=== PATIENT | male | born 1950 | race Caucasian/White ===

== ENCOUNTER 2017-07-18 07:44 | Emergency (ER) | payer MEDICARE ==
[~2017-07-18] VITALS: Ht 167.6 cm; Wt 81.6 kg
[~2017-07-18 07:44] MED LIST: ACEBUTOLOL HCL200 MG PO; BENAZEPRIL HCL40 MG PO; CYMBALTA30 MG PO; HYDROCHLOROTHIA25 MG PO; LOTREL 10-20 M1 EACH PO; LYRICA50 MG PO; NORCO 10-325 T1 EACH PO; PRILOSEC20 MG PO
== END 2017-07-18 08:40 | disposition home or self-care (01) ==
LOC: FSED 07:44
DX: I10 Essential (primary) hypertension (principal); E78.5 Hyperlipidemia, unspecified; K21.9 Gastro-esophageal reflux disease without esophagitis; J44.9 Chronic obstructive pulmonary disease, unspecified; F32.9 Major depressive disorder, single episode, unspecified; M54.5 Low back pain; G89.29 Other chronic pain
CPT/HCPCS: 99282

== ENCOUNTER → 2017-09-01 | Outpatient (CLI) | payer MEDICARE ==
--- NOTE | 2017-09-02 11:36 | Diagnostic Imaging Report ---
Exam: Lumbar spine MRI without IV contrast History: Low back pain, spondylolisthesis. Pain in right hip. Comparison studies: Lumbar spine MRI 12/20/2016. Technique: Sagittal and axial T2 , sagittal T1 and IR, axial spin density oblique. Coronal T2. Intravenous contrast: None Findings: Number of lumbar vertebral bodies: 5. Alignment: Moderate thoracolumbar curvature convex to the left centered at L1-L2. Normal lumbar lordosis. Soft tissues: No T2 hyperintense inflammatory changes. Paraspinal muscles: No signal abnormalities. Well-preserved. No atrophic changes Lower thoracic cord: Normal in signal and morphology. The tip of the conus is at T12-L1. Cauda equina: No masses. No arachnoiditis. Vertebrae: No compression fractures, infection or neoplasm. Degenerative changes: L1-L2: Mildly degenerated disc on the right due to curvature with new moderate degenerative endplate edema on the right. Asymmetric right disc bulge bulges and minimal right foraminal stenosis. No canal or left foraminal stenosis. L2-L3: Mildly degenerated disc primarily on the right due to curvature. Asymmetric right disc bulge results in moderate right foraminal stenosis and minimal canal stenosis. Extra foraminal disc bulge abuts the right L2 nerve root, unchanged. L3-L4: Mildly degenerated disc. Disc bulge with right foraminal annular fissure result in very mild canal stenosis and unchanged mild right foraminal stenosis. Disc bulge continues to abut the right L3 nerve root. L4-L5: Moderately degenerated disc on the left due to curvature. There are moderate degenerative endplate changes on the left due to curvature with decrease in degree of endplate edema. Disc bulge with right extraforaminal annular fissure, left foraminal disc osteophyte complex and moderate left facet arthrosis result in severe left foraminal stenosis and mild right foraminal stenosis. No significant canal stenosis. L5-S1: Moderate left facet arthrosis. Patent canal and foramina. IMPRESSION: 1. New reactive degenerative endplate edema on the right at L1-L2. Decreased endplate edema on the left at L4-5. 2. Unchanged multilevel disc degeneration, worse on the right at L1-L2 and L2-L3 and on the left at L4-L5 due to moderate levo curvature centered at L1-2. 3. Unchanged multilevel degenerative foraminal stenosis, worse/severe on the left at L4-L5 and moderate on the right L2-L3. 4. No significant canal stenosis. Signed by: Dr. Alexander Garcia M.D. on 09/02/2017 11:32 AM
== END ==
LOC: MRI 08:30
PROVIDERS: ATTEND Anesthesiology
DX: M54.5 Low back pain (principal); M51.36 Other intervertebral disc degeneration, lumbar region; M47.897 Other spondylosis, lumbosacral region; M54.16 Radiculopathy, lumbar region
CPT/HCPCS: 72148

== ENCOUNTER 2017-10-09 05:49 | Emergency (ER) | payer MEDICARE ==
[~2017-10-09] VITALS: Ht 167.6 cm; Wt 81.6 kg
--- OUTSIDE RECORDS SUMMARY | 2017-10-09 05:52 | XMS REPORT ---
Author Author [facility] Address Unknown Phone Unavailable Care Team Providers Care Manager Quantitative Name Role Phone MOSES SILVA Unavailable Unavailable Problems This patient has no known problems. Allergies, Adverse Reactions, Alerts This patient has no known allergies or adverse reactions. Medications This patient has no known medications. Results Test Description Test Time Test Comments Text Results Atomic Results Result Comments MRI SPINE LUMBAR WO [place] [id number] Patient Name: KALEE ONEAL MR #: [id number] : 1950 Age/Sex: 67/M Req #: [id number] Adm Physician: Ordered by: MOSES SILVA MD Report #: [id number] Location: MRI Room/Bed: Procedure: [id number] MRI/MRI SPINE LUMBAR WO Exam Date: Exam Time: REPORT STATUS: Signed Exam: Lumbar spine MRI without IV contrast History: Low back pain, spondylolisthesis. Pain in right hip. Comparison studies: Lumbar spine MRI 12/20/2016. Technique: Sagittal and axial T2 , sagittal T1 and IR, axial spin density oblique. Coronal T2. Intravenous contrast: None Findings: Number of lumbar vertebral bodies : 5. Alignment: Moderate thoracolumbar curvature convex to the left centered at L1-L2. Normal lumbar lordosis. Soft tissues: No T2 hyperintense inflammatory changes. Paraspinal muscles: No signal abnormalities. Well-preserved. No atrophic changes Lower thoracic cord : Normal in signal and morphology. The tip of the conus is at T12-L1. Cauda equina: No masses. No arachnoiditis. Vertebrae: No compression fractures, infection or neoplasm. Degenerative changes: L1-L2: Mildly degenerated disc on the right due to curvature with new moderate degenerative endplate edema on the right. Asymmetric right disc bulge bulges and minimal right foraminal stenosis. No canal or left foraminal stenosis. L2-L3: Mildly degenerated disc primarily on the right due to curvature. Asymmetric right disc bulge results in moderate right foraminal stenosis and minimal canal stenosis. Extra foraminal disc bulge abuts the right L2 nerve root, unchanged. L3-L4: Mildly degenerated disc. Disc bulge with right foraminal annular fissure result in very mild canal stenosis and unchanged mild right foraminal stenosis. Disc bulge continues to abut the right L3 nerve root. L4-L5: Moderately degenerated disc on the left due to curvature. There are moderate degenerative endplate changes on the left due to curvature with decrease in degree of endplate edema. Disc bulge with right extraforaminal annular fissure, left foraminal disc osteophyte complex and moderate left facet arthrosis result in severe left foraminal stenosis and mild right foraminal stenosis. No significant canal stenosis. L5-S1: Moderate left facet arthrosis. Patent canal and foramina. IMPRESSION: 1. New reactive degenerative endplate edema on the right at L1-L2. Decreased endplate edema on the left at L4-5. 2. Unchanged multilevel disc degeneration, worse on the right at L1-L2 and L2-L3 and on the left at L4 -L5 due to moderate levo curvature centered at L1-2. 3. Unchanged multilevel degenerative foraminal stenosis, worse/severe on the left at L4-L5 and moderate on the right L2-L3. 4. No significant canal stenosis. Signed by: Dr. mAandeep Keenan M.D. on 09/02/2017 11:32 AM Dictated By: AMANDEEP KEENAN MD 113 Transcribed By: JORGE A on 09/02/17 113 COPY TO: MOSES SILVA MD
[2017-10-09] MEDS ORDERED: LOMOTIL TABLET1 EACH PO (06:12)
[2017-10-09] MEDS ORDERED: DICYCLOMINE HCL20 MG PO (06:12)
[2017-10-09] MEDS ORDERED: DICYCLOMINE HCL 20 MG TAB PO ONE (06:15)
== END 2017-10-09 06:20 | disposition home or self-care (01) ==
LOC: FSED 05:49
DX: R19.7 Diarrhea, unspecified (principal); R10.30 Lower abdominal pain, unspecified; I10 Essential (primary) hypertension
CPT/HCPCS: 99282

== ENCOUNTER 2018-09-01 12:05 | Emergency (ER) | payer MEDICARE ==
[~2018-09-01] VITALS: Ht 167.6 cm; Wt 84.4 kg
[~2018-09-01 12:05] MED LIST changes: +DICYCLOMINE HCL20 MG PO; +LOMOTIL TABLET1 EACH PO
[2018-09-01] MEDS ORDERED: SODIUM CHLORIDE 0.9% 500ML 500 ML IV ONE (12:30)
--- NOTE | 2018-09-01 13:06 | Diagnostic Imaging Report ---
Examination: CT head without contrast Clinical Indication: Dizziness. Unsteady gait. Technique: Transaxial noncontrast images from the skull base through the vertex were obtained. Sagittal and coronal reformatted images were done. Dose modulation, iterative reconstruction, and/or weight based adjustment of the mA/kV was utilized to reduce the radiation dose to as low as reasonably achievable. Comparison: None. Findings: Scalp: No abnormalities. Bones: Intact. No fractures. No blastic or lytic lesions. Brain sulci: Appropriate for patient's age. Ventricles: Normal in size and configuration. No hydrocephalus. . Extra-axial space: No abnormalities. Parenchyma: There are subtle confluent areas of low-attenuation within subcortical and periventricular white matter, nonspecific, but could represent microvascular ischemic disease. No masses, hemorrhage, or acute or chronic cortical based vascular insults. Suprasellar region: No abnormalities. Craniocervical junction: The foramen magnum is patent. No Chiari one malformation. Impression: 1. No acute intracranial finding. 2. Mild chronic microvascular ischemic change. Signed by: Dr. Stephanie White M.D. on 09/01/2018 1:02 PM
[2018-09-01 14:41] VITALS: BP 173/106
== END 2018-09-01 14:42 | disposition home or self-care (01) ==
LOC: FSED 12:05
DX: R42 Dizziness and giddiness (principal)
CPT/HCPCS: 70450; 80053; 82553; 84484; 85025; 99283; J7040

== ENCOUNTER 2020-01-12 09:40 | Observation (INO) | payer MEDICARE, OTHER ==
[~2020-01-12] VITALS: Ht 167.6 cm; Wt 73.5 kg
[2020-01-12] MEDS ORDERED: ASPIRIN 325 MG TAB PO ONE (10:30)
[2020-01-12] MEDS ORDERED: ASPIRIN 81 MG CHEW TAB PO ONE (10:30)
--- NOTE | 2020-01-12 10:31 | Emergency Department Note ---
History of Present Illnes History of Present Illness Chief Complaint: Chest Pain History of Present Illness This is a 69 year old male Chief Complaint Comment PT STATES DIZZINESS AND HEARTBURN FOR ONE WEEK, PT STATES HE HAS BEEN HAVING A SLOW HR FOR ABOUT 4 YRS BUT HAS NOT SEEN A DOCTOR FOR IT, STEADY GAIT NOTED TO ROOM 1. DENIES SOB STATES HE ALWAYS HAS SOB. PT TALKING IN FULL SENTENCES . Historian: Patient Arrival Mode: Car Onset (how long ago): day(s) (1) Location: CHEST Quality: DULL Radiation: Denies non-radiation, Denies back, Denies neck, Denies extremity, Denies abdomen, Denies periumbilical, Denies flank, Denies proximal, Denies distal, Denies other Severity: moderate Onset quality: gradual Duration (how long): day(s) (1) Timing of current episode: intermittent Progression: waxing and waning Chronicity: new Context: Denies recent illness, Denies recent surgery, Denies recent immobilization, Denies recent travel, Denies trauma/injury, Denies new medications, Denies hx of DVT/PE, Denies non-compliance w/ medications, Denies other Relieving factors: none Exacerbating factors: none Associated symptoms: Reports chest pain; Denies denies other symptoms, Denies confusion, Denies cough, Denies diaphoresis, Denies fever/chills, Denies headaches, Denies loss of appetite, Denies malaise, Denies nausea/vomiting, Denies rash, Denies seizure, Denies shortness of breath, Denies syncope, Denies weakness, Denies other Treatments prior to arrival: none Past Medical/Family History Physician Review I have reviewed the patient's past medical and family history. Any updates have been documented here. Past Medical History Recent Fever: No Clinical Suspicion of Infectio: No New/Unexplained Change in Ment: No Past Medical History: Hypertension, COPD, Hyperlipedemia, Osteoarthritis Other Medical History: DEPRESSION GERD ARTHRITIS Other Surgery: LEFT SHOULDER SURGERY, C5, C-6 CERVICAL SURGERY Social History Smoking Cessation: Former smoker Counseling Performed: No Alcohol Use: Occasional Physically hurt or threatened: No Other Last Tetanus: UTD Any Pre-Existing Lines (PICC,: No Review of Systems Review of Systems Constitutional: Reports no symptoms EENTM: Reports no symptoms Cardiovascular: Reports as per HPI Respiratory: Reports no symptoms Gastrointestinal: Reports no symptoms Genitourinary: Reports no symptoms Musculoskeletal: Reports no symptoms Integumentary: Reports no symptoms Neurological: Reports no symptoms Psychological: Reports no symptoms Endocrine: Reports no symptoms Hematological/Lymphatic: Reports no symptoms Physical Exam Related Data Allergies: Coded Allergies: No Known Allergies (Unverified , 11/29/14) Triage Vital Signs Vital Signs Date Time Temp Pulse Resp B/P (MAP) Pulse Ox O2 Delivery O2 Flow Rate FiO2 01/12/20 09:58 98.7 50 18 145/63 98 Vital signs reviewed: Yes Physical Exam CONSTITUTIONAL Constitutional: Present well-developed, Present well-nourished HENT HENT: Present normocephalic, Present atraumatic, Present oropharynx clear/moist, Present nose normal HENT L/R: Present left ext ear normal, Present right ext ear normal EYES Eyes: Reports PERRL, Reports conjunctivae normal NECK Neck: Present ROM normal PULMONARY Pulmonary: Present effort normal, Present breath sounds normal CARDIOVASCULAR Cardiovascular: Present regular rhythm, Present heart sounds normal, Present capillary refill normal, Present normal rate GASTROINTESTINAL Abdominal: Present soft, Present nontender, Present bowel sounds normal GENITOURINARY Genitourinary: Present exam deferred SKIN Skin: Present warm, Present dry MUSCULOSKELETAL Musculoskeletal: Present ROM normal NEUROLOGICAL Neurological: Present alert, Present oriented x 3, Present no gross motor or sensory deficits PSYCHOLOGICAL Psychological: Present mood/affect normal, Present judgement normal Results Laboratory Lab results reviewed: Yes Imaging Imaging results reviewed: Yes Procedures 12 Lead ECG Interpretation ECG Interpretation : ECG: ECG 1 Date: Jan 12, 2020 Time: 09:44 Rhythm: sinus bradycardia Rate: bradycardia BPM: 47 QRS axis: right Conduction: incomplete RBBB ST segments normal: Yes T waves normal: Yes Assessment & Plan Medical Decision Making MDM ANGINA CAD Reassessment Reassessment BETTER Assessment & Plan Final Impression: (1) Chest pain (2) Bradycardia Depart Disposition: ADMITTED Last Vital Signs Date Time Temp Pulse Resp B/P (MAP) Pulse Ox O2 Delivery O2 Flow Rate FiO2 01/12/20 09:58 98.7 50 18 145/63 98 Home Meds Active Scripts Diphenoxylate Hcl/Atropine (LOMOTIL TABLET) 1 Each Tablet, 2 TAB PO QID PRN for DIARRHEA, #16 TAB 0 Refills Prov:ABEL TANNER MD 10/09/17 Dicyclomine Hcl (DICYCLOMINE HCL) 20 Mg Tablet, 20 MG PO QID PRN for ABDOMINAL PAIN, #10 TAB 0 Refills Prov:ABEL TANNER MD 10/09/17 Reported Medications Benazepril Hcl (BENAZEPRIL HCL) 40 Mg Tablet, 40 MG PO DAILY 05/11/15 Hydrochlorothiazide (HYDROCHLOROTHIAZIDE) 25 Mg Tablet, 25 MG PO DAILY, #30 TAB 05/11/15 Acebutolol Hcl (ACEBUTOLOL HCL) 200 Mg Capsule, 400 MG PO BID, CAP 05/11/15 Hydrocodone Bit/Acetaminophen (NORCO 10-325 TABLET) 1 Each Tablet, 1 TAB PO BID 11/29/14 Omeprazole (PRILOSEC) 20 Mg Capsule.dr, 20 MG PO DAILY 11/29/14 Duloxetine Hcl (CYMBALTA) 30 Mg Capsule.dr, 30 MG PO DAILY, #30 CAP 11/29/14 Amlodipine Besylate/Benazepril (LOTREL 10-20 MG CAPSULE) 1 Each Capsule, 1 TAB PO DAILY 11/29/14 Medications in the ED Aspirin 325 mg ONCE ONCE PO ; Start 01/12/20 at 10:30; Stop 01/12/20 at 10:31; Status DYLAN ASTORGA MD Jan 12, 2020 10:31
--- NOTE | 2020-01-12 10:43 | Diagnostic Imaging Report ---
EXAMINATION: CXR 1 [facility] INDICATION: Chest pain COMPARISON: Chest radiograph of 12/26/2011 FINDINGS: LINES/TUBES:EKG leads overlie the chest. LUNGS:The lungs are well-inflated. No focal consolidation or pulmonary edema. PLEURA:No pleural effusion or pneumothorax. MEDIASTINUM:The cardiomediastinal silhouette appears normal in size and shape. BONES/SOFT TISSUES:No acute osseous injury. Left shoulder hemiarthroplasty hardware. Severe degenerative changes of the glenoid. ABDOMEN:No free air under the diaphragm. IMPRESSION: No focal pneumonia or pulmonary edema. Signed by: Penelope Jean MD on 01/12/2020 10:40 AM
--- NOTE | 2020-01-12 10:45 | NUR ---
[facility] NOTIFIED OF NEED FOR TRANSFER. ETA 30-45 MINUTES GIVEN BY DISPATCH
[2020-01-12 11:55] VITALS: BP 141/88
[2020-01-12 12:37] LABS: CREATINE KINASE MB 1.5 ng/mL (0-5.0)
[2020-01-12 13:18] VITALS: BP 141/88
[2020-01-12] MEDS ORDERED: ACETAMINOPHEN 325 MG TAB PO PRN (13:30)
[2020-01-12] MEDS ORDERED: TEMAZEPAM 15 MG CAP PO PRN (13:30)
[2020-01-12] MEDS ORDERED: ONDANSETRON HCL INJ 2MG/ML 2ML 2 MG/ML VIAL IV PRN (13:30)
[2020-01-12] MEDS ORDERED: POLYETHYLENE GLYCOL 3350 17 GM PACK PO PRN (13:30)
[2020-01-12] MEDS ORDERED: HYDRALAZINE HCL 20 MG/ML VIAL IV PRN (13:30)
[2020-01-12 13:37] VITALS: BP 141/88
[2020-01-12] MEDS ORDERED: LUMIGAN2.5 M1 OP (13:55)
[2020-01-12] MEDS ORDERED: AMLODIPINE BESYL5 MG PO (13:57)
[2020-01-12] MEDS ORDERED: AZOPT10 ML OP (13:58)
[2020-01-12] MEDS ORDERED: CELEXA40 MG PO (14:00)
[2020-01-12] MEDS ORDERED: ACETAZOLAMIDE250 MG PO (14:02)
[2020-01-12] MEDS ORDERED: TRAZODONE HCL50 MG PO (14:02)
[2020-01-12] MEDS ORDERED: IBUPROFEN200 MG PO (14:04)
[2020-01-12 15:45] VITALS: BP 121/83
[2020-01-12] MEDS: DOCUSATE SODIUM 100 MG CAP PO SCH (18:50)
[2020-01-12 19:17] LABS: CREATINE KINASE MB 1.4 ng/mL (0-5.0)
--- NOTE | 2020-01-12 19:45 | NUR ---
RECEIVED REPORT FROM PREVIOUS NURSE. CALL LIGHT WITHIN REACH. PATIENT IN BED. ROUNDING PERFORMED
[2020-01-12 20:00] VITALS: BP 126/88
[2020-01-13] VITALS: BP 135/87
[2020-01-13 02:51] LABS: BASOPHILS # (AUTO) 0.1 (0.0-0.1); BASOPHILS % 1.1 % (0.0-1.0); EOSINOPHILS # (AUTO) 0.2 (0.0-0.4); EOSINOPHILS % 4.8 % (0.0-6.0); HEMATOCRIT 40.5 % (38.2-49.6); HEMOGLOBIN 13.3 g/dL (14.0-18.0); LYMPHOCYTES # (AUTO) 1.4 (1.0-3.2); LYMPHOCYTES % 29.8 % (18.0-39.1); MEAN CORPUSCULAR HGB CONC 32.8 g/dL (31-35); MEAN CORPUSCULAR VOLUME 100.5 fL (81-99); MONOCYTES # (AUTO) 0.5 (0.2-0.8); MONOCYTES % 9.9 % (4.4-11.3); NEUTROPHILS # (AUTO) 2.6 (2.1-6.9); NEUTROPHILS % 54.2 % (38.7-80.0); PLATELET COUNT 165 x10e3/uL (140-360); RED BLOOD COUNT 4.03 x10e6/uL (4.3-5.7); RED CELL DISTRIBUTION WIDTH 12.9 % (11.7-14.4)
[2020-01-13 03:12] LABS: CREATINE KINASE MB 1.2 ng/mL (0-5.0)
[2020-01-13 03:33] LABS: ALBUMIN 3.4 g/dL (3.5-5.0); ALBUMIN/GLOBULIN RATIO 1.3 (0.8-2.0); ANION GAP 11.5 mmol/L (8-16); CALCIUM 8.8 mg/dL (8.4-10.2); CHOL/HDL RATIO 5.5 (3.9-4.7); CREATININE, SERUM 1.22 mg/dL (0.72-1.25); MAGNESIUM 2.1 MG/DL (1.3-2.1); PHOSPHORUS 3.5 MG/DL (2.3-4.7); POTASSIUM 3.5 mmol/L (3.5-5.1)
[2020-01-13 03:53] LABS: THYROID STIMULATING HORMONE 3.136 uIU/mL (0.350-4.940)
[2020-01-13 04:00] VITALS: BP 116/72
--- NOTE | 2020-01-13 07:00 | NUR ---
BEDSIDE SHIFT REPORT RECEIVED FROM THE [employer]OBILE MECH[employer]IC MOTOR RN. EDUCATED PT ABOUT FALL PRECAUTIONS. PT VERBALIZED UNDERSTANDING. BED IS LOW AND LOCKED. SIDE RAILS X2. CALL LIGHT WITH IN EASY REACH. PT DENIES NEEDS AT THIS TIME.
--- NOTE | 2020-01-13 07:18 | NUR ---
GAVE BEDSIDE SHIFT REPORT TO ONCOMING NURSE. CALL LIGHT WITHIN REACH. PATIENT IN BED. HOURLY ROUNDING PERFORMED
[2020-01-13 08:06] VITALS: BP 145/88
[2020-01-13 08:47] VITALS: BP 145/88
[2020-01-13] MEDS ORDERED: ASPIRIN 325 MG TAB EC PO SCH (09:00)
[2020-01-13] MEDS: DOCUSATE SODIUM 100 MG CAP PO SCH ×2 (09:48→16:37)
[2020-01-13 11:30] VITALS: BP 130/85
[2020-01-13 15:52] VITALS: BP 134/83
--- NOTE | 2020-01-13 17:30 | NUR ---
PT REFUSED TO WEAR TELEMETRY BOX.
--- NOTE | 2020-01-13 17:31 | NUR ---
PT ASKED ABOUT DISCHARGE PROCESS. EDUCATED PT ABOUT DISCHARGE PROCESS AND PT VERBALIZED UNDERSTANDING.
--- NOTE | 2020-01-13 18:15 | NUR ---
WALKING ROUNDS MADE. PT IS NOT IN THE ROOM. PT LEFT THE TELEMETRY BOX INSIDE THE ROOM. PT WAS WAITING FOR THE ATTENDING MD TO SEE THE PT. PAGED PT EMILY ONEAL AND SHE INFORMED SHE PICKED UP PT FROM HOSPITAL. PT GIVEN THE PHONE TO THE PT AND PT INFORMED HE REACHED HOME SAFELY. INFORMED PT AND FAMILY MEMBER ABOUT PT DID NOT INFORM THIS RN OR ANY HOSPITAL STAFF ABOUT LEAVING THE FACILITY. PER THE PT, HE CANNOT WAIT AT THE HOSPITAL AND WANTED TO GO HOME. PER THE PT, HE REMOVED THE IV BY HIMSELF AND NO BLEEDING NOTED. INFORMED PT ABOUT AMA, AND ELOPEMENT PROCESS. PER THE PT, HE CAN BE REACHED AT [phone]. INFORMED PT ELOPEMENT TO OUTFITTER CABIN, [employer] AND [employer].
--- NOTE | 2020-01-13 23:06 | Consultation ---
DATE OF CONSULTATION: 01/13/2020 Cardiology Consult REASON FOR CONSULT: Bradycardia and chest pain. CHIEF COMPLAINT: Bradycardia and chest pain. HISTORY OF PRESENT ILLNESS: The patient is a 69-year-old man, no previous history of CAD, but has history of hypertension, hyperlipidemia, smoking, who presents with a burning discomfort in the upper part of his chest as well as some dizziness, was noted to be bradycardic on admission. Heart rate in the high 40s to low 50s. No syncope. Now heart rate is improved since beta-jose is being held. No more chest pain. Rule out for acute TX. PAST MEDICAL HISTORY: Hypertension and hyperlipidemia. PAST SURGICAL HISTORY: Had coronary angiography about 7 to 8 years ago per the patient, was negative. REVIEW OF SYSTEMS: As per HPI, otherwise negative. SOCIAL HISTORY: Does not smoke, drink, or abuse drugs. Used to smoke many years ago. FAMILY HISTORY: Noncontributory. OUTPATIENT MEDICATIONS: Reviewed. ALLERGIES: NO KNOWN DRUG ALLERGIES. PHYSICAL EXAMINATION: VITAL SIGNS: Temperature afebrile, pulse 63, respiratory rate 20, blood pressure 134/83, and saturating 99% on room air. GENERAL: Elderly man, in no acute distress. CARDIOVASCULAR: Regular rate and rhythm. No murmurs, rubs, or gallops. LUNGS: Clear to auscultation bilaterally. ABDOMEN: Soft, nontender, and nondistended. NEURO AND PSYCH: Alert and oriented to person, place, and time. Normal affect. INPATIENT MEDICATIONS: Reviewed. LABORATORY DATA: Reviewed. Troponins negative. IMAGING DATA: Reviewed. Chest x-ray is normal. TELEMETRY DATA: Reviewed, shows sinus bradycardia. ASSESSMENT: 1. Symptomatic bradycardia. 2. Atypical chest pain. PLAN: Bradycardia has now resolved after beta-jose was held. We stopped his home beta-jose. The patient can get outpatient stress testing. Okay to discharge from cardiovascular standpoint. Thank you for this consult. We will continue to follow. MD JOHNATHAN Santiago/NETO /[id number]
== END 2020-01-13 18:15 | disposition left against medical advice (07) ==
LOC: FSED 10:09 → INTOOBSV 10:26 → ERHOLD 10:26 → MED/SURG 11:54
PROVIDERS: ADMIT Internal Medicine; ATTEND Internal Medicine
DX: R00.1 Bradycardia, unspecified (principal); R07.89 Other chest pain; Z11.59 Encounter for screening for other viral diseases
CPT/HCPCS: 36415 ×2; 71045; 80053 ×2; 80061; 82550 ×2; 82553 ×2; 82948; 83036; 83735; 84100; 84443; 84484 ×2; 85025 ×2; 93005; 99284; G0378 ×2; U0002